=== PATIENT | male | born 1990 | race Caucasian/White ===

== ENCOUNTER 2024-09-07 12:00 | Emergency (ER) | payer OTHER ==
[~2024-09-07] VITALS: Ht 185.4 cm; Wt 85.4 kg
[~2024-09-07 12:00] MED LIST: EMTRICITABINE/TENOFOVIR 200MG/300MG TABLET PO SCH; RALTEGRAVIR 400 MG TAB (ISENTRESS) PO SCH
[2024-09-07 12:04] VITALS: BP 140/80; TEMP 99.4; O2SAT 99
[2024-09-07 12:48] LABS: BASO % 0.5 % (0.0-1.0); EOS # 0.1 10^3/uL (0.0-0.5); EOS % 1.2 % (0.0-3.0); HEMATOCRIT 43.1 % (42.0-52.0); HEMOGLOBIN 14.8 g/dl (13.5-17.5); LYMPH % 24.4 % (24.0-44.0); MEAN CORPUSCULAR HEMOGLOBIN 29.7 pg (27.0-33.0); MEAN CORPUSCULAR HGB CONC 34.3 g/dl (32.0-36.5); MEAN CORPUSCULAR VOLUME 86.5 fl (80.0-96.0); MONO # 0.4 10^3/uL (0.0-0.8); MONO % 5.4 % (2.0-8.0); NEUTROPHILS # 5.6 10^3/uL (1.5-8.5); NEUTROPHILS % 68.1 % (36.0-66.0); PLATELET COUNT, AUTOMATED 262 10^3/uL (150-450); RED BLOOD COUNT 4.98 10^6/uL (4.30-6.10); WHITE BLOOD COUNT 8.2 10^3/uL (4.0-10.0)
[2024-09-07 13:19] LABS: ALBUMIN 4.2 G/DL (3.2-5.2); ALKALINE PHOSPHATASE 63 U/L (40-129); ALT/SGPT 22 U/L (7.0-40); AST/SGOT 9 U/L (<34); BILIRUBIN,TOTAL 0.8 MG/DL (0.3-1.2); BLOOD UREA NITROGEN 18 MG/DL (9-23); CALCIUM LEVEL 9.1 MG/DL (8.5-10.1); CARBON DIOXIDE LEVEL 27 MMOL/L (20-31); CHLORIDE LEVEL 104 MMOL/L (98-107); GLOMERULAR FILTRATION RATE > 60.0 (>60); GLUCOSE, FASTING 133 MG/DL (60-100); POTASSIUM SERUM 3.9 MMOL/L (3.5-5.1); SODIUM LEVEL 139 MMOL/L (136-145); TOTAL PROTEIN 7.3 G/DL (5.7-8.2)
[2024-09-07 13:27] LABS: HEPATITIS B SURFACE ANTIBODY POSITIVE (POSITIVE)
[2024-09-07 13:39] LABS: HEPATITIS B SURFACE ANTIGEN NEGATIVE (NEGATIVE)
[2024-09-07 13:52] LABS: HIV 1&2 SCREEN NEGATIVE (NEGATIVE)
[2024-09-07 14:01] LABS: HEPATITIS C VIRUS ABY INDEX 0.02 INDEX (<0.8)
[2024-09-07] MEDS ORDERED: EXPOSURE KIT-ADULT 7 DAY SUPPLY PO ONE (15:50)
[2024-09-07] MEDS ORDERED: ONDA-282 PO (15:54)
[2024-09-07] MEDS ORDERED: EMTR1TAB16 PO (15:54)
[2024-09-07] MEDS ORDERED: RALT40TA PO (15:54)
[2024-09-07] MEDS: RALTEGRAVIR 400 MG TAB (ISENTRESS) PO ONE (16:40)
[2024-09-07] MEDS: EMTRICITABINE/TENOFOVIR 200MG/300MG TABLET PO ONE (16:40)
== END 2024-09-07 17:01 | disposition home or self-care (01) ==
LOC: M ED 12:00
DX: Z77.21 Contact with and (suspected) exposure to potentially hazardous body fluids (principal); W46.0XXA Contact with hypodermic needle, initial encounter; S61.032A Puncture wound without foreign body of left thumb without damage to nail, initial encounter; Y92.9 Unspecified place or not applicable; Y93.9 Activity, unspecified; Y99.0 Civilian activity done for income or pay; F10.10 Alcohol abuse, uncomplicated; Z79.899 Other long term (current) drug therapy